=== PATIENT | female | born 1990 | race Two or more races ===

== ENCOUNTER 2021-04-11 20:49 | Emergency (ER) | payer OTHER ==
[~2021-04-11] VITALS: Ht 157.5 cm; Wt 76.7 kg
[~2021-04-11 20:49] MED LIST: OTC MED
[2021-04-11 21:45] VITALS: BP 101/64
--- NOTE | 2021-04-11 21:45 | NUR ---
BIBS FOR C/P ONGOING DRY COUGH X 9 WEEKS, -FEVER, CHILLS, -N/V/D, -H/A
--- NOTE | 2021-04-11 21:45 | NUR ---
BIBS FOR C/P ONGOING DRY COUGH X 9 WEEKS, -FEVER, CHILLS, -N/V/D, -H/A
[2021-04-11] MEDS ORDERED: ALBU18HF2 INH (23:00)
[2021-04-11] MEDS ORDERED: AZIT250T13 PO (23:00)
[2021-04-11] MEDS ORDERED: PROM118S5 PO (23:00)
[2021-04-11] MEDS ORDERED: METH4TAB3 PO (23:00)
--- NOTE | 2021-04-11 23:07 | NUR ---
Patient discharged to home in stable condition. RX Written and verbal after care instructions given. Patient verbalizes understanding of instruction. PT ambulatory with a steady gait.
--- NOTE | 2021-04-11 23:07 | NUR ---
Patient discharged to home in stable condition. RX Written and verbal after care instructions given. Patient verbalizes understanding of instruction. PT ambulatory with a steady gait.
== END 2021-04-11 23:09 | disposition home or self-care (01) ==
LOC: ER 20:53
DX: J20.9 Acute bronchitis, unspecified (principal); Z98.890 Other specified postprocedural states; Z79.899 Other long term (current) drug therapy
CPT/HCPCS: 71045-TC

== ENCOUNTER 2023-06-14 06:39 | Emergency (ER) | payer MEDICAID, OTHER ==
[~2023-06-14] VITALS: Ht 167.6 cm; Wt 77.1 kg
[~2023-06-14 06:39] MED LIST changes: +ALBU18HF2 INH; +AZIT250T13 PO; +METH4TAB3 PO; +PROM118S5 PO
[2023-06-14] MEDS ORDERED: AMOX500C2 PO (07:12)
[2023-06-14] MEDS ORDERED: dexaMETHasone SOD PHOSPHATE 1 ML ONE (07:27)
[2023-06-14] MEDS ORDERED: AMOXICILLIN TRIHYDRATE 250 MG CAPSULE ONE (07:27)
[2023-06-14] MEDS: AMOXICILLIN TRIHYDRATE 500 MG CAPSULE PO ONE (07:37)
[2023-06-14] MEDS: dexaMETHasone SOD PHOSPHATE 4 MG/ML VIAL IM ONE (07:37)
[2023-06-14 07:48] VITALS: BP 132/79; TEMP 98.1; O2SAT 100
== END 2023-06-14 07:48 | disposition home or self-care (01) ==
LOC: ER 06:56
DX: J03.90 Acute tonsillitis, unspecified (principal)
CPT/HCPCS: 99283; 96372; 87077; 87070; 87880; J1100; 86403-TC